=== PATIENT | male | born 2000 | race African-American/Black ===

== ENCOUNTER 2020-05-08 16:38 | Emergency (ER) | payer OTHER, SELFPAY ==
[2020-05-08 16:48] VITALS: BP 145/70; PULSE 83; RESP 12; TEMP 36.8; O2SAT 98; BMI 27.0
--- NOTE | 2020-05-08 17:18 | ED_ITS ---
HPI - Extremity Injury (Lower) <Marybel Frost PA-C - Last Filed: 05/08/20 19:33> General Chief Complaint: Extremity Injury, Lower Stated Complaint: left foot injury playing football Time Seen by Provider: 05/08/20 17:18 Source: patient Mode of arrival: Wheelchair Limitations: no limitations History of Present Illness HPI Narrative: 19-year-old previously healthy male presents from the [facility] with left ankle pain after sustaining an injury while playing football. Says he was going up in the air to catch the ball and he came down hard on his left foot everting his ankle he felt a popping sensation. He had significant pain and he has swelling of the area. He has been walking on it although he says it is really too painful to walk on. This happened just before arrival to the [facility] department. He has no previous injuries to this foot or ankle, he declines pain medicine other than Tylenol and ibuprofen. He denies numbness, tingling, inability to stand on the injured leg, knee pain or any other symptoms. MD complaint: ankle injury and foot injury Onset (ago): hour(s) (1) Injury: Left: ankle Type of Injury: eversion Place: [place] and street/outdoors Severity: moderate Severity scale (1-10): 7 Relieving factors: nothing Exacerbating factors: weight bearing, movement and palpation Context: jumping (With landing on left foot) Associated symptoms: snap/pop sensation and able to partially bear weight Other symptoms: none Related Data Allergies Allergy/AdvReac Type Severity Reaction Status Date / Time No Known Drug Allergies Allergy Verified 05/08/20 16:50 Review of Systems <Marybel Frost PA-C - Last Filed: 05/08/20 19:33> Review of Systems Narrative: GENERAL: Denies chills, fatigue, malaise, fever, sweats. HEENT: Denies sinus pain, ear pain, sore throat, difficulty swallowing, dizziness. RESPIRATORY: Denies dyspnea, cough, wheezing, hemoptysis, sputum. CARDIOVASCULAR: Denies chest pain, palpitations, orthopnea, edema, GASTROINTESTINAL: Denies nausea, vomiting, abdominal pain, diarrhea, constipation, melena. : Denies dysuria, frequency, incontinence, hematuria, urinary retention. MUSCULOSKELETAL: Positive for left ankle tenderness, swelling, pain with walking or movement denies other weakness, joint pain, or bony pain SKIN: Denies rash, skin lesions, or other NEUROLOGIC: Denies weakness, headache, numbness, change in speech, confusion, seizures, incoordination. PSYCHIATRIC: No concerning psychosocial issues. 12 point review of systems is negative except for those stated above Patient History <Marybel Frost PA-C - Last Filed: 05/08/20 19:33> Social History Smoking Status: Never smoker Smoking Status: Never smoker Substance Use Type: does not use Exam <Marybel Frost PA-C - Last Filed: 05/08/20 19:33> Narrative Exam Narrative: GENERAL: 19 year old patient appears stated age. Well-nourished, well-developed patient, in mild distress. HEAD: Atraumatic. Normocephalic. EYES: Pupils equal round and reactive. Extraocular motions intact. No scleral icterus. No injection or drainage. ENT: Nose without bleeding, purulent drainage. Throat without erythema, tonsillar hypertrophy or exudate. Airway patent. NECK: Trachea midline. Non tender CARDIOVASCULAR: Regular rate and rhythm without murmurs, gallops, or rubs. RESPIRATORY: Clear to auscultation. Breath sounds equal bilaterally. No wheezes, rales, or rhonchi. GASTROINTESTINAL: Abdomen soft, non-tender, nondistended. EXTREMITIES: There is significant swelling around the left lateral malleolus most notably distal to the malleolus on the dorsum of the foot in the area of the ATFL. There is no bony tenderness of the lateral malleolus or the bones of the foot. There is tenderness with palpation of the distal fibula. Range of motion is significantly reduced at the ankle 2nd pain. Capillary refill is intact less than 2 seconds, sensation is intact. No edema or joint tenderness. BACK: Nontender without deformity or crepitance. No flank tenderness. NEURO: AOx3. SKIN: No rash or erythema of visible areas Initial Vital Signs Initial Vital Signs: Vital Signs Temperature 98.3 F 05/08/20 16:48 Pulse Rate 83 05/08/20 16:48 Respiratory Rate 12 05/08/20 16:48 Blood Pressure 145/70 H 05/08/20 16:48 Pulse Oximetry 98 08/30/20 16:48 <DO Lyle Schaffer Last Filed: 05/08/20 19:49> Initial Vital Signs Initial Vital Signs: Vital Signs Temperature 98.3 F 05/08/20 16:48 Pulse Rate 83 05/08/20 16:48 Respiratory Rate 12 05/08/20 16:48 Blood Pressure 145/70 H 05/08/20 16:48 Pulse Oximetry 98 05/08/20 16:48 Procedures <Marybel Frost PA-C - Last Filed: 05/08/20 19:33> Orthopedic Splinting/Casting Injury #1: Side: left Lower Extremity Injury Location: ankle Lower Extremity Immobilizer: stirrup splint (Sugar-tong) Other Orthopedic Equipment: crutches Post splinting neuro exam: intact Post splinting vascular exam: intact Placed by: Nursing (Assisted by provider) Scores <CHRISTINA Jacques Last Filed: 05/08/20 19:33> GCS [place]vall[place] coma scale eye opening: Spontaneous Eric coma scale verbal response: Orientated [place] coma scale motor response: Obey commands Eric coma scale total score: 15 Course <CHRISTINA Jacques Last Filed: 05/08/20 19:33> Orders Ordered: ED Orders 05/08/20 17:19 XR ankle LT min 3V Stat Discontinued Medications Acetaminophen (Tylenol) 975 mg PO NOW ONE Stop: 05/08/20 17:20 Last Admin: 05/08/20 17:34 Dose: 975 mg Documented by: EDGAR Ibuprofen (Advil) 800 mg PO NOW ONE Stop: 05/08/20 17:20 Last Admin: 05/08/20 17:34 Dose: 800 mg Documented by: EDGAR Vital Signs Vital signs: Vital Signs - 8 hr 05/08/20 16:48 05/08/20 19:39 Temperature 98.3 F Pulse Rate 83 68 Respiratory Rate 12 16 Blood Pressure 145/70 H 146/64 H Pulse Oximetry 98 99 <DO Lyle Schaffer Last Filed: 05/08/20 19:49> Orders Ordered: ED Orders 05/08/20 17:19 XR ankle LT min 3V Stat Discontinued Medications Acetaminophen (Tylenol) 975 mg PO NOW ONE Stop: 05/08/20 17:20 Last Admin: 05/08/20 17:34 Dose: 975 mg Documented by: EDGAR Ibuprofen (Advil) 800 mg PO NOW ONE Stop: 05/08/20 17:20 Last Admin: 05/08/20 17:34 Dose: 800 mg Documented by: EDGAR Vital Signs Vital signs: Vital Signs - 8 hr 05/08/20 16:48 05/08/20 19:39 Temperature 98.3 F Pulse Rate 83 68 Respiratory Rate 12 16 Blood Pressure 145/70 H 146/64 H Pulse Oximetry 98 99 MDM - Extremity Injury (Lower) <Marybel Frost PA-C - Last Filed: 05/08/20 19:33> Differential Diagnosis Differential diagnosis: Likely ankle sprain and strain and ankle fracture Medical Records Attestation: I reviewed the patient's medical records. Imaging Data Extremity x-ray #1: Attestation: I personally reviewed and interpreted this imaging study as follows: Radiologist's Impression: [address] [address] XRay Report Signed Patient: Joseph Breaux RMR#: [id number] : 2000Acct:[id number] Age/Sex: MDate of Service: 05/08/20 Loc: ED Accession Number: [id number] Procedure: XR ankle LT min 3V Ordering Provider: Marybel Frost P.A-C PROCEDURE: XR ANKLE LT MIN 3V INDICATIONS: left ankle pain/trauma TECHNIQUE: 3 views of the ankle were acquired. COMPARISON: None. FINDINGS: Bones: No fractures or dislocations. Ankle mortise is normally aligned. No suspicious bony lesions. The talar dome demonstrates no hira abnormality. Soft tissues: No tibiotalar joint effusion. Achilles tendon appears normal. IMPRESSION: Unremarkable ankle plain films. Dictated by: Kaden Melchor M.D. on 05/08/2020 at 16:52 Approved by: Kaden Melchor M.D. on 05/08/2020 at 16:[address] [facility] Narrative Medical decision making narrative: This is a well-appearing but uncomfortable due to pain 19-year-old previously healthy who presents complaining of left ankle pain after jumping up to catch a football coming down hard on his left foot today with eversion. Exam is consistent with a moderate to severe sprain suspect ATFL and CFL involvement. X-ray did not show any evidence of fracture, exam does not suggest fracture. He is splinted with a sugar-tong splint in the emergency department provided with crutches and crutch training and [place] with [place]opedics here at [facility]. Re-examination after splinting he is still neurovascularly intact. Emergency return precautions provided, all questions answered. Discharge Plan Departure Patient Disposition: Home Clinical Impression: Ankle sprain and strain, Sprain of calcaneofibular ligament of left ankle, initial encounter Sprain of anterior talofibular ligament of left ankle Qualifiers: Encounter type: initial encounter Qualified Code(s): S93.492A - Sprain of other ligament of left ankle, initial encounter Discharge Date/Time: 05/08/20 19:40 Instructions: Ankle Sprain, DI for Ankle Sprain Activity Restrictions/Additional Instructions: Thank you for letting us be part of your care in the emergency department today. There is no evidence of a fracture on her x-ray, however based on your exam and how your injury happened I think that you have a significant ankle sprain, likely of 2 of the ligaments that help support your ankle. You were splinted in the emergency department, and you will need to follow-up with an [place]opedic [place] or you can [place] base with the orthopedic provider here at [facility] that is listed in your paperwork. You will need to use crutches and stay off of your injured foot. Using it and bearing weight will only prolonged your healing at this stage. I generally recommend Tylenol and ibuprofen for pain, keeping it elevated will also be very helpful in pain reduction. I provided a work note for you. There is no evidence of an emergent or life threatening illness at this time, but follow up with your doctor in 1-2 days is recommended nonetheless to continue to rule out serious underlying causes of your symptoms. Please call the office for an appointment. Please return to the Emergency Department for any worsening or persistent symptoms. Please take medications as directed. Referrals: Emilia Cui MD [Physician] - (ATFL/CFL sprain Left ankle) Stand Alone Forms: Work Release Note <Allan Ortega DO - Last Filed: 05/08/20 19:49> Cosign ED Attending Cosignature Attestation: Dr Ortega Co-Sign Statement: I was available for consultation during this patient's emergency department visit. This chart is signed by myself for administrative purposes only. I did not have direct contact with this patient during this visit. They were seen independently by the APC.
[2020-05-08] MEDS: ACETAMINOPHEN 325 MG TABLET 975 MG PO (17:34)
[2020-05-08] MEDS: IBUPROFEN 400 MG TABLET 800 MG PO (17:34)
[2020-05-08 19:39] VITALS: BP 146/64; PULSE 68; RESP 16; O2SAT 99
== END 2020-05-08 19:40 | disposition home or self-care (01) ==
PROVIDERS: Emergency Provider Student in an Organized Health Care Education/Training Program
DX: S93.492A Sprain of other ligament of left ankle, initial encounter (principal); S96.912A Strain of unspecified muscle and tendon at ankle and foot level, left foot, initial encounter; X58.XXXA Exposure to other specified factors, initial encounter; Y93.61 Activity, american tackle football
CPT/HCPCS: 29515; 73610; 99283; 99284